=== PATIENT | male | born 1955 | race Native Hawaiian/Other Pacific Islander ===

== ENCOUNTER 2017-09-23 10:39 | Outpatient (CLI) | payer OTHER | END 2017-09-23 21:20 | disposition home or self-care (01) | LOC: NM 10:39 | DX: K58.0 Irritable bowel syndrome with diarrhea (principal) | CPT/HCPCS: A9541 ==

== ENCOUNTER 2017-12-02 12:35 | Outpatient (CLI) | payer OTHER | END 2017-12-02 22:10 | disposition home or self-care (01) | LOC: NM 12:35 | DX: K82.8 Other specified diseases of gallbladder (principal) | CPT/HCPCS: A9537 ==